=== PATIENT | male | born 2000 | race African-American/Black ===

== ENCOUNTER 2022-01-09 05:55 | Emergency (ER) | payer OTHER ==
[~2022-01-09] VITALS: Ht 172.7 cm; Wt 52.0 kg
[2022-01-09] MEDS ORDERED: BACITRACIN ZINC OINT UDPKT TOP NR (08:45)
[2022-01-09] MEDS ORDERED: TETANUS, DIPHTHERIA, PERTUSSIS VAC/PF 0.5ML (>10YR OLD) IM ONE (09:00)
[2022-01-09] MEDS ORDERED: LIDOCAINE HCL/EPINEPHRINE 1%-EPI 1:100,000 20 ML VIAL INFIL NR (09:00)
[2022-01-09] MEDS ORDERED: CEFAZOLIN 1000MG PREMIX 50 ML IV ONE (09:15)
[2022-01-09] MEDS ORDERED: IBUP-2029 MT (12:54)
[2022-01-09] MEDS ORDERED: CEPH500C2 MT (12:54)
[2022-01-09 13:17] VITALS: BP 112/63
== END 2022-01-09 13:39 | disposition home or self-care (01) ==
LOC: ER 05:55
DX: S62.631B Displaced fracture of distal phalanx of left index finger, initial encounter for open fracture (principal); S62.393A Other fracture of third metacarpal bone, left hand, initial encounter for closed fracture; S09.8XXA Other specified injuries of head, initial encounter; S20.419A Abrasion of unspecified back wall of thorax, initial encounter; R51.9 Headache, unspecified; M54.2 Cervicalgia; F10.129 Alcohol abuse with intoxication, unspecified; Y90.9 Presence of alcohol in blood, level not specified; F12.90 Cannabis use, unspecified, uncomplicated; Y00.XXXA Assault by blunt object, initial encounter; Y93.89 Activity, other specified; V49.49XA Driver injured in collision with other motor vehicles in traffic accident, initial encounter; Y92.488 Other paved roadways as the place of occurrence of the external cause
CPT/HCPCS: 12002; 26742; 70450; 72125; 72128; 73130; 90471; 90715; 96365; 99285; A4217; J0690; J3490; Z7610

== ENCOUNTER 2022-01-17 15:30 | Emergency (ER) | payer OTHER ==
[~2022-01-17] VITALS: Ht 175.3 cm; Wt 59.0 kg
[~2022-01-17 15:30] MED LIST: CEPH500C2 MT; IBUP-2029 MT
[2022-01-17 15:52] VITALS: BP 112/76
[2022-01-17] MEDS ORDERED: BACITRACIN ZINC OINT UDPKT TOP NR (18:00)
[2022-01-17] MEDS ORDERED: TRAM50TA3 MT (18:04)
== END 2022-01-17 18:33 | disposition home or self-care (01) ==
LOC: ER 15:30
DX: S61.213D Laceration without foreign body of left middle finger without damage to nail, subsequent encounter (principal); X58.XXXD Exposure to other specified factors, subsequent encounter; F12.10 Cannabis abuse, uncomplicated
CPT/HCPCS: 99282; 99283